=== PATIENT | female | born 1995 | race Caucasian/White ===

== ENCOUNTER 2022-12-03 12:56 | Emergency (ER) | payer MEDICAID ==
[2022-12-03 14:35] LABS: ESTIMATED GFR 104 mL/min (>60)
[2022-12-03 14:42] LABS: CORONAVIRUS COVID-19 NAA NEGATIVE (NEGATIVE)
== END 2022-12-03 16:55 | disposition home or self-care (01) ==
LOC: JD.ED 12:56
DX: R59.0 Localized enlarged lymph nodes (principal); Z87.891 Personal history of nicotine dependence; Z88.5 Allergy status to narcotic agent; Z20.822 Contact with and (suspected) exposure to COVID-19
CPT/HCPCS: 0241U; 36415; 80053; 81001; 84703; 85025; 86140; 86308; 99283